=== PATIENT | female | born 2005 | race Caucasian/White ===

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

== ENCOUNTER 2023-02-15 22:21 | Emergency (ER) | payer BC ==
[~2023-02-15] VITALS: Ht 162.6 cm; Wt 54.4 kg
[~2023-02-15 22:21] MED LIST changes: +IBUP-1955 PO
[2023-02-15 22:33] VITALS: TEMP 98.1
[2023-02-15] MEDS ORDERED: FAMOTIDINE (20 MG) 20 MG TABLET ONE (22:42)
[2023-02-15] MEDS ORDERED: FAMOTIDINE (20 MG) 20 MG TABLET PO ONE (23:00)
[2023-02-16 00:47] VITALS: BP 128/71; O2SAT 98
== END 2023-02-16 00:47 | disposition home or self-care (01) ==
LOC: ER 22:24
DX: R05.9 Cough, unspecified (principal)
CPT/HCPCS: 71045-TC

== ENCOUNTER 2023-05-24 17:02 | Emergency (ER) | payer BC, OTHER ==
[~2023-05-24] VITALS: Ht 162.6 cm; Wt 56.7 kg
[2023-05-24 19:08] LABS: APPEARANCE,URINE CLEAR (CLEAR); BILIRUBIN,URINE NEGATIVE (NEGATIVE); BLOOD, URINE NEGATIVE Ery/uL (NEGATIVE); COLOR,URINE YELLOW (YELLOW); KETONES,URINE NEGATIVE (NEGATIVE); LEUKOCYTE ESTERASE ,URINE NEGATIVE (NEGATIVE); NITRITE, URINE NEGATIVE (NEGATIVE); PROTEIN,URINE NEGATIVE (NEGATIVE); UGLUCOSE NEGATIVE (NEGATIVE); UROBILINOGEN,URINE 0.2 EU/dL (0.2)
[2023-05-24 19:09] LABS: PREGNANCY TEST URINE QUAL NEGATIVE (NEGATIVE)
[2023-05-24 19:49] LABS: BASOPHILS % (AUTO) 0.3 % (0.0-2.0); EOSINOPHILS # (AUTO) 0.1 K/uL (0.0-0.7); EOSINOPHILS % (AUTO) 1.3 % (0.0-6.0); HEMATOCRIT 40 % (33-45); HEMOGLOBIN 13.5 g/dL (11.5-14.8); LYMPHOCYTES # (AUTO) 1.2 K/uL (0.8-4.8); LYMPHOCYTES % (AUTO) 15.7 % (20.0-44.0); MEAN CORPUSCULAR HEMOGLOBIN 29 PG (26.0-33.0); MEAN CORPUSCULAR HGB CONC 34 g/dl (31.0-36.0); MEAN CORPUSCULAR VOLUME 85 fL (82-100); MONOCYTES # (AUTO) 0.5 K/uL (0.1-1.30); NEUTROPHILS # (AUTO) 5.8 K/uL (1.8-8.9); NEUTROPHILS % (AUTO) 75.7 % (43.0-81.0); PLATELET COUNT (AUTO) 281 K/uL (150-450); RED BLOOD CELL COUNT(AUTO) 4.73 MIL/uL (4.0-5.2); RED CELL DISTRIBUTION WIDTH 13.7 % (11.5-15.0); WHITE BLOOD COUNT (AUTO) 7.6 K/uL (4.3-11.0)
[2023-05-24 20:04] LABS: BILIRUBIN,TOTAL 0.7 mg/dL (0.2-1.0); CALCIUM, SERUM 9.3 mg/dL (8.5-10.1); CREATININE 0.5 mg/dL (0.6-1.3); POTASSIUM 3.4 mmol/L (3.5-5.1); TOTAL PROTEIN, SERUM 8.1 g/dL (6.4-8.2)
[2023-05-24] MEDS ORDERED: MESA10007 RC (22:41)
[2023-05-24 22:46] LABS: ALBUMIN 4.1 g/dL (3.4-5.0)
[2023-05-24 23:01] VITALS: BP 123/94; TEMP 98.1; O2SAT 100
== END 2023-05-24 23:02 | disposition home or self-care (01) ==
LOC: ER 17:03
DX: K52.9 Noninfective gastroenteritis and colitis, unspecified (principal)
CPT/HCPCS: 36415; 80053-TC; 83690-TC; 84703-TC; 85025-TC

== ENCOUNTER 2024-08-24 16:17 | Emergency (ER) | payer BC, MEDICAID ==
[~2024-08-24] VITALS: Ht 162.6 cm; Wt 54.4 kg
[~2024-08-24 16:17] MED LIST changes: +MESA10007 RC
[2024-08-24 16:27] VITALS: BP 132/81; TEMP 98.5; O2SAT 99
[2024-08-24] MEDS ORDERED: PENI500T PO (16:49)
[2024-08-24] MEDS ORDERED: dexaMETHasone SOD PHOSPHATE 1 ML ONE (16:52)
[2024-08-24] MEDS: dexaMETHasone SOD PHOSPHATE 4 MG/ML VIAL IM ONE (17:00)
== END 2024-08-24 17:47 | disposition home or self-care (01) ==
LOC: ER 16:26
DX: J02.9 Acute pharyngitis, unspecified (principal); K50.90 Crohn's disease, unspecified, without complications
CPT/HCPCS: 99283; 96372; 87070; 87880; J1100; 86403-TC